=== PATIENT | male | born 1960 | race American Indian/Alaskan Native ===

== ENCOUNTER 2019-06-09 15:20 | Emergency (ER) | payer OTHER ==
[2019-06-09] MEDS ORDERED: MORPHINE 4 MG/1 ML INJ IV ONE ×2 (16:20→19:36)
[2019-06-09] MEDS ORDERED: ONDANSETRON 4 MG/2 ML INJ IV ONE ×2 (16:20→19:36)
--- NOTE | 2019-06-09 16:20 | Emergency Department Report ---
<ETHAN SOTO - Last Filed: 06/09/19 16:26> ED Abdominal Pain HPI - General Chief Complaint: Abdominal Pain Stated Complaint: ABD PAIN Time Seen by Provider: 06/09/19 16:03 Source: patient, EMS Mode of arrival: Stretcher Limitations: No Limitations - History of Present Illness Initial Comments: 59-year-old male presents in police custody for sudden onset of abdominal pain and bulging mass around the umbilicus x about 10:50 AM today he shouldn't has history of a recurrent umbilical hernia and last had a hernia lindsay gically repaired in July 2018 per patient. Patient denies any heavy lifting this morning, but states the hernia popped out again as he was pushing open a heavy door. Patient was sent by Dr. Bradley for evaluation of a possible incarcerated hernia. MD Complaint: abdominal pain -: Sudden Location: periumbilical Radiation: none Severity: severe Severity scale (0 -10): 8 Quality: stabbing, aching Consistency: constant Improves With: nothing Worsens With: movement Associated Symptoms: denies: nausea, vomiting, diarrhea, fever - Related Data Previous Rx's Medication Instructions Recorded Last Taken Type Ibuprofen [Motrin 800 MG tab] 800 mg PO Q8HR PRN #20 tablet 06/09/19 Unknown Rx Allergies Allergy/AdvReac Type Severity Reaction Status Date / Time celecoxib [From Celebrex] Allergy Hives Verified 06/09/19 15:50 hydrocodone Allergy Hives Verified 06/09/19 15:50 topiramate [From Topamax] Allergy Hives Verified 06/09/19 15:50 ED Review of Systems Comment: All other systems reviewed and negative Constitutional: denies: chills, fever Respiratory: denies: cough, shortness of breath, wheezing Cardiovascular: denies: chest pain, palpitations Gastrointestinal: abdominal pain. denies: nausea, vomiting Skin: change in color (redness ) ED Past Medical Hx - Past Medical History Hx CVA: Yes (CABG IN NOVEMBER) - Social History Smoking Status: Former Smoker Substance Use Type: None - Medications Home Medications: Home Medications Medication Instructions Recorded Confirmed Last Taken Type Ibuprofen [Motrin 800 MG tab] 800 mg PO Q8HR PRN #20 tablet 06/09/19 Unknown Rx ED Physical Exam - General Limitations: No Limitations General appearance: alert, in no apparent distress - Head Head exam: Present: atraumatic, normocephalic - Eye Eye exam: Present: normal appearance - Respiratory Respiratory exam: Present: normal lung sounds bilaterally. Absent: respiratory distress - Cardiovascular Cardiovascular Exam: Present: regular rate, normal rhythm, normal heart sounds. Absent: systolic murmur, diastolic murmur, rubs, gallop - GI/Abdominal GI/Abdominal exam: Present: tenderness, hernia (tender, nonreducible umbilical hernia noted with mild overlying erythema ). Absent: distended - Rectal Rectal exam: Present: deferred - Extremities Exam Extremities exam: Present: normal inspection - Neurological Exam Neurological exam: Present: alert, oriented X3 - Psychiatric Psychiatric exam: Present: normal affect, normal mood - Skin Skin exam: Present: warm, dry, intact, normal color. Absent: rash ED Disposition Clinical Impression: Hematoma Umbilical hernia Qualifiers: Obstruction and gangrene presence: without obstruction or gangrene Qualified Code(s): K42.9 - Umbilical hernia without obstruction or gangrene Disposition: TO HOME OR SELFCARE Condition: Stable Instructions: Umbilical Hernia (ED) Additional Instructions: please take medication as prescribed. Follow-up with Dr. Moreno, general surgeon in the next 2-3 days. return to the emergency room for any new or worsening symptoms. Prescriptions: Ibuprofen [Motrin 800 MG tab] 800 mg PO Q8HR PRN #20 tablet PRN Reason: pain Referrals: LUDIN MORENO MD [Staff Physician] - 2-3 Days Print Language: ROMANSH <JESSICA BANKSCHANDRAKANT Rosales - Last Filed: 06/09/19 20:34> ED Physical Exam - General General appearance: alert, in no apparent distress - Head Head exam: Present: atraumatic, normocephalic - Eye Eye exam: Present: normal appearance - ENT ENT exam: Present: mucous membranes moist - Neck Neck exam: Present: normal inspection - Respiratory Respiratory exam: Present: normal lung sounds bilaterally. Absent: respiratory distress, wheezes, rales - Cardiovascular Cardiovascular Exam: Present: regular rate, normal rhythm. Absent: systolic murmur, diastolic murmur, rubs, gallop - GI/Abdominal GI/Abdominal exam: Present: soft, tenderness (over umbilical hernia site), normal bowel sounds, other (redness noted over umbilical hernia site) - Rectal Rectal exam: Present: deferred - Extremities Exam Extremities exam: Present: normal inspection - Back Exam Back exam: Present: normal inspection - Neurological Exam Neurological exam: Present: alert, oriented X3 - Psychiatric Psychiatric exam: Present: normal affect, normal mood - Skin Skin exam: Present: warm, dry, intact, normal color. Absent: rash ED Course - Reevaluation(s) Reevaluation #1: I discussed all results with patient. . I examined the patient. The patient's has a incarcerated hernia of the supraumbilical region. Patient complains of severe pain. Patient's hernia site is tender and red. Patient's lungs are clear. Patient's cardiovascular exam intact. We will consult Gen. surgery 06/09/19 19:[address] Moreno's recommendations and plan of care with patient. He agrees with plan of care. Patient states his pain is better since getting Dilaudid. Patient states pain is now a 1 out of 10. 06/09/19 20:38 - Consultations Consultation #1: I discussed case with Dr. Moreno, general surgery. Dr. Moreno reviewed CT images and states this is a hematoma secondary to a tear of his hernia mesh and there is no bowel within the hernia. Dr. Moreno recommends rest, anti- inflammatories and follow-up with him in his office as an outpatient in a few days. 06/09/19 20:34 ED Medical Decision Making - Lab Data Result diagrams: 06/09/19 16:37 06/09/19 16:37 <DIANN VALLADARES - Last Filed: 06/10/19 02:07> ED Review of Systems ROS: Stated complaint: ABD PAIN Other details as noted in HPI Comment: All other systems reviewed and negative ED Course Vital Signs 06/09/19 06/09/19 06/09/19 15:45 15:55 16:00 Temperature 98.4 F Pulse Rate 62 Respiratory 20 Rate Blood Pressure 113/51 113/51 O2 Sat by Pulse 96 96 95 Oximetry 06/09/19 06/09/19 06/09/19 16:16 16:30 16:46 Temperature Pulse Rate Respiratory Rate Blood Pressure 106/75 106/75 106/75 O2 Sat by Pulse 97 97 97 Oximetry 06/09/19 06/09/19 06/09/19 17:00 17:16 17:30 Temperature Pulse Rate Respiratory Rate Blood Pressure 113/81 109/75 109/75 O2 Sat by Pulse 98 96 96 Oximetry 06/09/19 06/09/19 17:46 22:00 Temperature 98.4 F Pulse Rate 62 Respiratory Rate Blood Pressure O2 Sat by Pulse 98 98 Oximetry - Consultations Consultation #1: 06/09/19 19:57 Dr. Villarreal, ER attending spoke with Dr. Moreno, general surgery who will consult on patient ED Medical Decision Making - Lab Data Result diagrams: 06/09/19 16:37 06/09/19 16:37 Lab Results 06/09/19 06/09/19 06/09/19 Range/Units 16:37 16:37 18:33 WBC 7.9 (4.5-11.0) K/mm3 RBC 4.65 (3.65-5.03) M/mm3 Hgb 12.9 (11.8-15.2) gm/dl Hct 39.9 (35.5-45.6) % MCV 86 (84-94) fl MCH 28 (28-32) pg MCHC 32 (32-34) % RDW 17.5 H (13.2-15.2) % Plt Count 246 (140-440) K/mm3 Lymph % (Auto) 24.3 (13.4-35.0) % Mellette % (Auto) 10.1 H (0.0-7.3) % Eos % (Auto) 1.9 (0.0-4.3) % Baso % (Auto) 0.8 (0.0-1.8) % Lymph # 1.9 (1.2-5.4) K/mm3 Mellette # 0.8 (0.0-0.8) K/mm3 Eos # 0.2 (0.0-0.4) K/mm3 Baso # 0.1 (0.0-0.1) K/mm3 Seg Neutrophils % 62.9 (40.0-70.0) % Seg Neutrophils # 5.0 (1.8-7.7) K/mm3 Sodium 139 (137-145) mmol/L Potassium 4.2 (3.6-5.0) mmol/L Chloride 99.3 (98-107) mmol/L Carbon Dioxide 29 (22-30) mmol/L Anion Gap 15 mmol/L BUN 15 (9-20) mg/dL Creatinine 0.9 (0.8-1.5) mg/dL Estimated GFR > 60 ml/min BUN/Creatinine Ratio 17 % Glucose 92 (75-100) mg/dL Lactic Acid 2.40 H* (0.7-2.0) mmol/L Calcium 8.9 (8.4-10.2) mg/dL Total Bilirubin 0.20 (0.1-1.2) mg/dL AST 13 (5-40) units/L ALT 11 (7-56) units/L Alkaline Phosphatase 118 (35-129) units/L Total Protein 6.8 (6.3-8.2) g/dL Albumin 4.2 (3.9-5) g/dL Albumin/Globulin Ratio 1.6 % Lipase 12 L (13-60) units/L Vital Signs 06/09/19 06/09/19 06/09/19 15:45 15:55 16:00 Temperature 98.4 F Pulse Rate 62 Respiratory 20 Rate Blood Pressure 113/51 113/51 O2 Sat by Pulse 96 96 95 Oximetry 06/09/19 06/09/19 06/09/19 16:16 16:30 16:46 Temperature Pulse Rate Respiratory Rate Blood Pressure 106/75 106/75 106/75 O2 Sat by Pulse 97 97 97 Oximetry 06/09/19 06/09/19 06/09/19 17:00 17:16 17:30 Temperature Pulse Rate Respiratory Rate Blood Pressure 113/81 109/75 109/75 O2 Sat by Pulse 98 96 96 Oximetry 06/09/19 06/09/19 17:46 22:00 Temperature 98.4 F Pulse Rate 62 Respiratory Rate Blood Pressure O2 Sat by Pulse 98 98 Oximetry - Radiology Data Radiology results: report reviewed CT ABDOMEN AND PELVIS WITH CONTRAST INDICATION / CLINICAL INFORMATION: abdominal pain, umbilical nonreducible hernia. TECHNIQUE: Axial CT images were obtained through the abdomen and pelvis after 100 mL Omnipaque [address] scans at this location are performed using CT dose reduction for ALARA by means of automated exposure control. COMPARISON: None available. FINDINGS: LOWER CHEST: No significant abnormality. LIVER: No significant abnormality. GALLBLADDER: No significant abnormality. BILE DUCTS: No significant abnormality. PANCREAS: No significant abnormality. SPLEEN: No significant abnormality. ADRENALS: No significant abnormality. RIGHT KIDNEY and URETER: Small nonobstructing intrarenal stones. No ureteral stone or hydronephrosis. LEFT KIDNEY and URETER: Small nonobstructing intrarenal stones. No ureteral st one or hydronephrosis. STOMACH and SMALL BOWEL: No significant abnormality. COLON: No significant abnormality. APPENDIX: No significant abnormality. PERITONEUM: No free fluid. No free air. There is a slightly complex collection located deep to the anterior abdominal wall containing numerous septations. This collection measures 9.6 x 5.4 x 7.0 cm. This collection is deep to an umbilical hernia which contains fluid with mild adjacent inflammation. This umbilical hernia measures 2.6 x 3.8 x 3.7 cm. No bowel is involved. LYMPH NODES: No significant adenopathy. AORTA and ARTERIES: Mild atherosclerotic calcification without acute abnormality. Ectasia of both common iliac arteries. No significant stenosis. IVC and VEINS: No significant abnormality. URINARY BLADDER: Urinary bladder is moderately distended. REPRODUCTIVE ORGANS: No significant abnormality. ADDITIONAL FINDINGS: None. SKELETAL SYSTEM: No significant abnormality. IMPRESSION: 1. Umbilical hernia measuring 3.8 cm containing fluid with mild adjacent inflammation. 2. Deep to this umbilical hernia along the undersurface of the anterior abdominal wall, there is a 9.6 cm complex fluid collection with internal septations. This could represent resolving hematoma. Signer Name: Shashank Adler MD Signed: 06/09/2019 7:33 PM Workstation Name: [id number] Transcribed By: DT Dictated By: Patric Adler MD Electronically Authenticated By: Patric Adler MD Signed Date/Time: 06/09/19 193 - Medical Decision Making signed out by Candy Soto PA-C pending CT abd/pelvis results vitals are stable on exam: bowel sounds are normal, umbilical bulge is present which is not reducible, small area of light pink erythema present overlying the umbilical bulge, pt states he is able to tolerate PO intake, he denies any N/V, he states he is able to pass gas. labs only significant for mildly elevated lactic acid of 2.4 which improved to normal on repeat, no leukocytosis, pt is afebrile, CT abd/ pelvis: 1. Umbilical hernia measuring 3.8 cm containing fluid with mild adjacent inflammation. 2. Deep to this umbilical hernia along the undersurface of the anterior abdominal wall, there is a 9.6 cm complex fluid collection with internal septations. This could represent resolving hematoma. Dr. Villarreal, ER attending spoke with Dr. Moreno who reviewed the CT imaging himself and states that there is no bowel in the umbilical hernia and it appears that pt has a tear in his umbilical hernia mesh which caused localized hematoma, Dr. Moreno recommended NSAID, rest, and to follow up as an outpatient in his office in the next 2-3 days. pt was given pain medication and pain resolved, pt states his pain is only a 1/10. pt is stable for discharge. advised pt to please take medication as prescribed. Follow-up with Dr. Moreno, general surgeon in the next 2-3 days. return to the emergency room for any new or worsening symptoms. - Differential Diagnosis hernia incarceration/strangulation, umbilical hernia, abscess Critical care attestation.: If time is entered above; I have spent that time in minutes in the direct care of this critically ill patient, excluding procedure time. ED Disposition Is pt being admited?: No Does the pt Need Aspirin: No Time of Disposition: 21:07
[2019-06-09 17:02] LABS: Basophils # (Auto) 0.1 K/mm3 (0.0-0.1); Basophils % (Auto) 0.8 % (0.0-1.8); Eosinophils # (Auto) 0.2 K/mm3 (0.0-0.4); Eosinophils % (Auto) 1.9 % (0.0-4.3); Hematocrit 39.9 % (35.5-45.6); Hemoglobin 12.9 gm/dl (11.8-15.2); Lymphocytes # (Auto) 1.9 K/mm3 (1.2-5.4); Lymphocytes % (Auto) 24.3 % (13.4-35.0); Mean Corpuscular HGB Conc 32 % (32-34); Mean Corpuscular Volume 86 fl (84-94); Monocytes # (Auto) 0.8 K/mm3 (0.0-0.8); Monocytes % (Auto) 10.1 % (0.0-7.3); Platelet Count 246 K/mm3 (140-440); Red Blood Count 4.65 M/mm3 (3.65-5.03); Red Cell Distribution Width 17.5 % (13.2-15.2)
[2019-06-09 17:40] LABS: Alanine Aminotransferase 11 units/L (7-56); Albumin 4.2 g/dL (3.9-5); BUN/Creatinine Ratio 17; Blood Urea Nitrogen 15 mg/dL (9-20); Calcium 8.9 mg/dL (8.4-10.2); Hemolysis Index 11
[2019-06-09] MEDS ORDERED: SODIUM CHLORIDE 0.9% 1000 ML 1,000 ML IV ONE (19:14)
[2019-06-09 19:15] VITALS: BP 109/75
--- NOTE | 2019-06-09 19:37 | Cat Scan Report ---
CT ABDOMEN AND PELVIS WITH CONTRAST INDICATION / CLINICAL INFORMATION: abdominal pain, umbilical nonreducible hernia. TECHNIQUE: Axial CT images were obtained through the abdomen and pelvis after 100 mL Omnipaque [address] scans at this location are performed using CT dose reduction for ALARA by means of automated exposure control. COMPARISON: None available. FINDINGS: LOWER CHEST: No significant abnormality. LIVER: No significant abnormality. GALLBLADDER: No significant abnormality. BILE DUCTS: No significant abnormality. PANCREAS: No significant abnormality. SPLEEN: No significant abnormality. ADRENALS: No significant abnormality. RIGHT KIDNEY and URETER: Small nonobstructing intrarenal stones. No ureteral stone or hydronephrosis. LEFT KIDNEY and URETER: Small nonobstructing intrarenal stones. No ureteral stone or hydronephrosis. STOMACH and SMALL BOWEL: No significant abnormality. COLON: No significant abnormality. APPENDIX: No significant abnormality. PERITONEUM: No free fluid. No free air. There is a slightly complex collection located deep to the an terior abdominal wall containing numerous septations. This collection measures 9.6 x 5.4 x 7.0 cm. Th is collection is deep to an umbilical hernia which contains fluid with mild adjacent inflammation. Th is umbilical hernia measures 2.6 x 3.8 x 3.7 cm. No bowel is involved. LYMPH NODES: No significant adenopathy. AORTA and ARTERIES: Mild atherosclerotic calcification without acute abnormality. Ectasia of both com mon iliac arteries. No significant stenosis. IVC and VEINS: No significant abnormality. URINARY BLADDER: Urinary bladder is moderately distended. REPRODUCTIVE ORGANS: No significant abnormality. ADDITIONAL FINDINGS: None. SKELETAL SYSTEM: No significant abnormality. IMPRESSION: 1. Umbilical hernia measuring 3.8 cm containing fluid with mild adjacent inflammation. 2. Deep to this umbilical hernia along the undersurface of the anterior abdominal wall, there is a 9. 6 cm complex fluid collection with internal septations. This could represent resolving hematoma. Signer Name: Shashank Adler MD Signed: 06/09/2019 7:33 PM Workstation Name: [id number]
[2019-06-09] MEDS ORDERED: HYDROmorphone 1 MG/1 ML INJ IV ONE (19:58)
--- NOTE | 2019-06-09 20:38 | Event Note ---
Date: 06/09/19 Dr. Villarreal called me about this patient. I review the chart and the CT in detail. Patient does not have any bowel associated with this umbilical pain. Based on the history, I think the patient tore through his repair today and bled in to the umbilicus. I do not see any mesh. Therefore, I think the hernia was primarily repaired. At this point, patient needs anti-inflammatories, ice, and rest. We can see him in the office for consideration of repair of the recurrent hernia. If the pain is uncontrollable, then I would recommend admission for pain control. No urgent surgical intervention is needed at this moment. I discussed this with Dr. Villarreal.
== END 2019-06-09 22:00 | disposition home or self-care (01) ==
LOC: ED 15:20
DX: S30.1XXA Contusion of abdominal wall, initial encounter (principal); K42.9 Umbilical hernia without obstruction or gangrene; X58.XXXA Exposure to other specified factors, initial encounter; Y93.89 Activity, other specified; Y92.89 Other specified places as the place of occurrence of the external cause; Y99.8 Other external cause status
CPT/HCPCS: 36415; 74177; 80053; 82140; 83690; 85025; 96374; 96375; 99284; J1170; J2270; J2405; J7030; Q9967